=== PATIENT | female | born 1940 | race Caucasian/White ===

== ENCOUNTER 2017-03-11 14:26 | Emergency (ER) | payer OTHER, MEDICARE ==
[~2017-03-11] VITALS: Ht 154.9 cm; Wt 99.7 kg
[~2017-03-11 14:26] MED LIST: AMLO10TA2 PO; ASCO1CAP3 PO; ASPI325T45 PO; CALCTAB5 PO; CHOL100010 PO; CIPR1TAB11 PO; CLC100 PO; CLOB-65 EXT; GARL400T4 PO; LACTCAP3 PO; LISI40TA PO; LORA-741 PO; MELO15TA10 PO; MULT-610 PO; NAPR1TAB9 PO; NIAC500T11 PO; PRLSR20 PO; SIMV20TA2 PO; TNR50 PO; [UNRECOGNIZED DRUG - CODE] TOP; bactrim
[2017-03-11 14:31] VITALS: TEMP 36.6; Ht 154.9 cm; Wt 99.7 kg
--- NOTE | 2017-03-11 15:10 | EMERGENCY ROOM VISIT NOTE ---
History First contact with patient: 14:49 (Jenna Cuevas M.D.) First contact with patient: 14:49 (Sid Kumar MD) Chief Complaint: SHORTNESS OF BREATH Stated Complaint: SOB URINARY PROBLEMS History of Present Illness The patient is a 77 year old female who presents to the Emergency Room with complaints of SOB, Leg pain, and Leakage of her suprapubic catheter. Patient presented to ED today per PCP direction after recent labwork showed she was in kidney failure and heart failure. SOB has been getting progressively worse over the past 3 days; she states the SOB is worse with exertion and alleviated with rest. patient does not lie flat at night due to back and shoulder pain but still reports orthopnea and PND. She denies any chest pain, or chest pain on exertion She has significant PMH of CHF, CKD, renal and bladder calculi, and colitis. Patient describes swelling in her lower limbs bilaterally and pain in the back of both legs, which is new. She also reports sciatic pain which shoots down both of her legs. She has had a suprapubic catheter since 1992, which chronically leaks, and she has recently had several blood clots obstructing the catheter as well as bladder calculi. She has had leaking around her catheter since bladder calculi removed in she is having leaking around it with a blood clot yesterday. She takes Mobic and Aleve intermittently for her back pain for many years. Usually she walks with a roller walker but gets short of breath. (Jenna Cuevas M.D.) Review of Systems See HPI for pertinent positives and negatives. A total of ten systems were reviewed and were otherwise negative. (Jenna Cuevas M.D.) Past Medical/Surgical History Medical Problems: (1) Bladder calculi (2) Hypertension (3) Suprapubic catheter (Sid Kumar MD) Social History Smoking Status: Never Smoker Drug Use: none Marital Status: Housing Status: lives with family Occupation Status: retired (Jenna Cuevas M.D.) Current/Historical Medications Scheduled Ascorbic Acid (Vitamin C), 500 MG PO BID Aspirin (Aspirin), 325 MG PO QPM Cephalexin Monohydrate (Keflex), 250 MG PO QID Cholecalciferol (Vitamin D3), 1 TAB PO DAILY Docusate Sodium (Docusate Sodium), 100 MG PO BID Lactobacillus (Acidophilus), 2 TAB PO QAM Lisinopril (Zestril), 40 MG PO DAILY Lorazepam (Ativan), 0.5 MG PO QPM Meloxicam (Mobic), 15 MG PO QAM Multiple Vitamins W/ Minerals (Centrum Adults), 1 TAB PO QPM Naproxen (Aleve), 220 MG PO QPM Nebivolol Hcl (Bystolic), 1 TAB PO DAILY Niacin (Niacin), 500 MG PO QPM Omeprazole (Prilosec), 20 MG PO QAM Simvastatin (Zocor), 20 MG PO QPM Scheduled PRN Emollient (Amlactin Cerapeutic), 1 APPLN TOP BID PRN for dry skin Fiber Laxative (Fiber Laxative), for PRN Miscellaneous Medications Calcium Carbonate (Caltrate 600) Garlic (Garlic) Saccharomyces Boulardii (Probiotic) Physical Exam Vital Signs Date Time Temp Pulse Resp B/P (MAP) Pulse Ox O2 Delivery O2 Flow Rate FiO2 03/11/17 20:28 84 20 158/70 98 03/11/17 19:18 71 20 100 Nebulizer 162/74 03/11/17 19:17 63 03/11/17 18:36 66 18 213/77 98 Room Air 03/11/17 17:49 62 18 97 Room Air 03/11/17 16:23 74 22 262/77 100 Room Air 03/11/17 15:10 75 03/11/17 14:56 97 Room Air 03/11/17 14:31 36.6 77 24 224/91 97 Room Air (Sid Kumar MD) Physical Exam GENERAL: Awake, alert, well-appearing, in no distress HENT: Normocephalic, atraumatic. Oropharynx unremarkable. EYES: Normal conjunctiva. Sclera non-icteric. NECK: Supple. No nuchal rigidity. FROM. No JVD. RESPIRATORY: Clear to auscultation. CARDIAC: Regular rate, normal rhythm. Extremities warm and well perfused. Pulses equal. ABDOMEN: Soft, non-distended. Tenderness to palpation generalized but enhanced in lower left quadrant. No masses. MUSCULOSKELETAL: Chest examination reveals no tenderness. The back is symmetrical on inspection without obvious abnormality. There is no CVA tenderness to palpation. No joint edema. LOWER EXTREMITIES: Calves are equal size bilaterally and non-tender. No edema. No discoloration. NEURO: Normal sensorium. No sensory or motor deficits noted. SKIN: No rash or jaundice noted. (Jenna Cuevas M.D.) Medical Decision & Procedures ER Provider Diagnostic Interpretation: CHEST ONE VIEW PORTABLE HISTORY: 77 years-old Female acute shortness of breath COMPARISON: Chest radiograph 01/15/2016 TECHNIQUE: Portable upright AP view of the chest. FINDINGS: Cardiac silhouette is mildly enlarged. There is atherosclerosis of the aorta without pneumothorax or pleural effusion. Hazy left basilar opacity is unchanged suggesting subsegmental atelectasis. Right mid lung subsegmental scarring is unchanged. There is mild convex right curvature of the mid thoracic spine. Right shoulder hemiarthroplasty noted. IMPRESSION: Mild cardiomegaly without acute cardiopulmonary process. The above report was generated using voice recognition software. It may contain grammatical, syntax or spelling errors. Electronically signed by: Renan Ellis M.D. 03/11/2017 4:05 PM Dictated Date/Time: 03/11/2017 4:04 PM ABD/PELVIS IV CONTRAST ONLY HISTORY: 77 years-old Female LLQ pain and CVA tenderness b/l acute left lower quadrant abdominal pain. COMPARISON: The abdomen and pelvis 11/19/2015 TECHNIQUE: Multiple axial CT images of the abdomen and pelvis were obtained following the intravenous administration of 94 mL Optiray 320. Oral contrast was not used. A dose lowering technique was used consistent with the principals of ALARA. FINDINGS: The lung bases are generally clear. No pneumoperitoneum identified. Inferior cardiac chambers are mildly enlarged. Mitral and aortic annular calcifications are noted in addition to coronary arterial disease. The liver, spleen and adrenal glands are within normal limits. There is moderate to severe pancreatic atrophy. Multiple gallstones are seen layering within the gallbladder lumen, notably within the gallbladder fundus. No CT evidence of acute cholecystitis. No biliary ductal dilation identified. There is moderate atrophy with multifocal parenchymal scarring within the left kidney. Nonobstructing 2 mm calculus is seen within the inferior pole left kidney. Probable cyst of the inferior pole left kidney is seen, 1.6 cm. Ureters are unremarkable. Indwelling suprapubic catheter is again noted with distal tip terminating in the urinary bladder lumen. There is subtle enhancement of the anterosuperior urinary bladder wall nicely seen on the coronal and sagittal images and also on image 300. Prior hysterectomy. There is mild to moderate plaquing of the abdominal aorta and branch vessels. No bulky retroperitoneal adenopathy. There is no bowel obstruction. Moderate to extensive sigmoid diverticulosis is present without CT evidence of acute diverticulitis at this time. There is no focal bowel wall thickening identified. The appendix is not seen and may be surgically absent. Soft tissues are unremarkable. The bones are moderately demineralized but appear intact. There is mild convex left curvature of the lumbar spine. 10 mm anterolisthesis of L4 on L5 is noted, likely secondary to severe facet arthropathy. There is a large posterior disc osteophyte complex at T12-L1 left paracentral/lateral recess region causing moderate severe narrowing of the left lateral recess with moderate central canal stenosis. IMPRESSION: 1. No acute intra-abdominal or intrapelvic abnormality identified. 2. Colonic diverticulosis without diverticulitis. 3. Cholelithiasis. 4. Punctate nonobstructing calculus of the inferior pole left kidney is noted. There is moderate atrophy of the left kidney. 5. Focal area of ill-defined mildly increased mural enhancement of the anterosuperior urinary bladder is noted which may be incidental. This could be correlated with cystoscopy to exclude neoplasm. Suprapubic catheter noted. 6. Prior hysterectomy. The above report was generated using voice recognition software. It may contain grammatical, syntax or spelling errors Electronically signed by: Renan Ellis M.D. 03/11/2017 6:31 PM Dictated Date/Time: 03/11/2017 6:21 PM (Sid Kumar MD) Laboratory Results 03/11/17 16:48 Red Blood Count 4.32, Mean Corpuscular Volume 94.4, Mean Corpuscular Hemoglobin 31.3, Mean Corpuscular Hemoglobin Concent 33.1, Mean Platelet Volume 11.1, Neutrophils (%) (Auto) 72.5, Lymphocytes (%) (Auto) 18.2, Monocytes (%) (Auto) 8.6, Eosinophils (%) (Auto) 0.1, Basophils (%) (Auto) 0.2, Neutrophils # (Auto) 8.59, Lymphocytes # (Auto) 2.15, Monocytes # (Auto) 1.02, Eosinophils # (Auto) 0.01, Basophils # (Auto) 0.02 03/11/17 16:48 Test 03/11/17 16:30 03/11/17 16:48 Urine Color YELLOW Urine Appearance CLEAR (CLEAR) Urine pH 6.0 (4.5-7.5) Urine Specific [place] 1.012 (1.000-1.030) Urine Protein NEG (NEG) Urine Glucose (UA) NEG (NEG) Urine Ketones NEG (NEG) Urine Occult Blood NEG (NEG) Urine Nitrite NEG (NEG) Urine Bilirubin NEG (NEG) Urine Urobilinogen NEG (NEG) Urine Leukocyte Esterase TRACE (NEG) Urine WBC (Auto) 1-5 /hpf (0-5) Urine RBC (Auto) 0-4 /hpf (0-4) Urine Hyaline Casts (Auto) 0 /lpf (0-5) Urine Epithelial Cells (Auto) 10-20 /lpf (0-5) Urine Bacteria (Auto) NEG (NEG) White Blood Count 11.84 K/uL (4.8-10.8) Red Blood Count 4.32 M/uL (4.2-5.4) Hemoglobin 13.5 g/dL (12.0-16.0) Hematocrit 40.8 % (37-47) Mean Corpuscular Volume 94.4 fL (80-100) Mean Corpuscular Hemoglobin 31.3 pg (25-34) Mean Corpuscular Hemoglobin Concent 33.1 g/dl (32-36) Platelet Count 212 K/uL (130-400) Mean Platelet Volume 11.1 fL (7.4-10.4) Neutrophils (%) (Auto) 72.5 % Lymphocytes (%) (Auto) 18.2 % Monocytes (%) (Auto) 8.6 % Eosinophils (%) (Auto) 0.1 % Basophils (%) (Auto) 0.2 % Neutrophils # (Auto) 8.59 K/uL (1.4-6.5) Lymphocytes # (Auto) 2.15 K/uL (1.2-3.4) Monocytes # (Auto) 1.02 K/uL (0.11-0.59) Eosinophils # (Auto) 0.01 K/uL (0-0.5) Basophils # (Auto) 0.02 K/uL (0-0.2) RDW Standard Deviation 51.3 fL (36.4-46.3) RDW Coefficient of Variation 15.1 % (11.5-14.5) Immature Granulocyte % (Auto) 0.4 % Immature Granulocyte # (Auto) 0.05 K/uL (0.00-0.02) Prothrombin Time 10.4 SECONDS (9.0-12.0) Prothromb Time International Ratio 1.0 (0.9-1.1) Activated Partial Thromboplast Time 24.3 SECONDS (21.0-31.0) Partial Thromboplastin Ratio 0.9 Anion Gap 6.0 mmol/L (3-11) Est Creatinine Clear Calc Drug Dose 42.5 ml/min Estimated GFR () 50.5 Estimated GFR (Non- 43.6 BUN/Creatinine Ratio 23.6 (10-20) Calcium Level 9.6 mg/dl (8.5-10.1) Magnesium Level 2.1 mg/dl (1.8-2.4) Total Bilirubin 0.4 mg/dl (0.2-1) Aspartate Amino Transf (AST/SGOT) 16 U/L (15-37) Alanine Aminotransferase (ALT/SGPT) 21 U/L (12-78) Alkaline Phosphatase 89 U/L (45-117) Pro-B-Type Natriuretic Peptide 1262 pg/ml (0-1800) Total Protein 7.4 gm/dl (6.4-8.2) Albumin 3.4 gm/dl (3.4-5.0) Globulin 4.0 gm/dl (2.5-4.0) Albumin/Globulin Ratio 0.9 (0.9-2) (Sid Kumar MD) Medications Administered Medications (Trade) Dose Ordered Sig/Jn Route Start Time Stop Time Status Last Admin Dose Admin Sodium Chloride 250 ml @ 999 mls/hr Q16M STAT IV 03/11/17 16:41 03/11/17 16:56 DC 03/11/17 16:56 999 MLS/HR Sodium Chloride 500 ml @ 999 mls/hr Q31M STAT IV 03/11/17 18:42 03/11/17 19:12 DC 03/11/17 19:09 999 MLS/HR Albuterol/ Ipratropium (Duoneb) 3 ml ONE STAT INH 8/31/17 18:54 03/11/17 18:55 DC 03/11/17 19:09 3 ML (Sid Kumar MD) ECG Indication: SOB/dyspnea Rate (beats per minute): 68 Rhythm: normal sinus Findings: no acute ischemic change Comparison ECG Date: Change: no significant change (January 15, 2016) (Jenna Cuevas M.D.) Indication: chest pain Rate (beats per minute): 68 Rhythm: normal sinus Findings: no acute ischemic change (Sid Kumar MD) ED Course 1449: full h&p taken by myself and dr. kumar 1509: Dr. kumar discussed case with dr. roberts, who performed his own h&p 1834; patient reassessed by dr. kumar; no change in symptoms; feels she is at her baseline. 1914: patient reassessed; BP 162/74 by manual measure; patient provided with labs, ct results, happy for discharge home. 2003: patient discharged home (Jenna Cuevas M.D.) Medical Decision Prior records/ancillary studies reviewed. Triage Nursing notes reviewed. Additional history obtained from the family. The patient's history was concerning for SOB. Differential diagnosis: Etiologies such as infections, reactive airway disease, pneumonia, pneumothorax , COPD, CHF, cardiac ischemia, pulmonary embolism, musculoskeletal, gastrointestinal, as well as others were entertained. Physical examination: As above. Blood pressure noted to be markedly elevated with automatic cuff; manual BP measurements: systolic 150-160/diastolic 70-80 ER treatment provided: Duoneb given 750 mL bolus IV NSS Diagnostic interpretation by me: The electrocardiogram was negative for acute ischemic or pathologic change. The labs revealed Cr: 1.2, down from 1.78 yesterday; mildly elevated white cell count, consistent with decadron use yesterday. Imaging studies: Chest x-ray as above. CT scan performed due to LLQ and flank pain. However, scan showed no acute pathology. Ill defined focus in the bladder, recommend further evaluation by urology as outpatient. The patient was short of breath but not clinically far off of her baseline; chest xray negative, bnp and bedside ultrasound of heart were not consistent with CHF exacerbation. She appeared to have some improvement with the duo neb. She was recommended followup with her PCP in the next 1-2 days; for possible further evaluation of symptoms of asthma/COPD; or consider referral to pulmonary medicine. By the evaluation outlined above emergent etiologies such as CHF, cardiac ischemia, pulmonary embolism, reactive airway disease, pneumonia, pneumothorax, musculoskeletal, serious bacterial infections, as well as others were deemed relatively unlikely. Creatinine improved from yesterday, no current concern for acute kidney injury; She was recommended to continue antibiotics as prescribed by PCP. She was particularly concerned about leakage of ehr suprapubic acatheter, however this has been going on for over a year. Recommend considering referral to urology for further evaluation. Referral: The patient was referred back to their primary care physician for follow-up in 2 to 3 days for a recheck of the current condition. (Jenna Cuevas M.D.) Medication Reconcilliation Current Medication List: was personally reviewed by me (Jenna Cuevas M.D.) Current Medication List: was personally reviewed by me (Sid Kumar MD) Blood Pressure Screening Patient's blood pressure: Elevated blood pressure Blood pressure disposition: Referred to PCP (Jenna Cuevas M.D.) Impression Primary Impression: Shortness of breath Additional Impression: Chronic suprapubic catheter Departure Information Dispostion Home / Self-Care Condition FAIR Referrals No Doctor, Assigned (PCP) Fito Matthews PA-C Patient Instructions My [facility] Resident Tracking Resident Involvement: Resident Care Provided Care Provided: Adult ED (Jenna Cuevas M.D.) Resident Involvement: Resident Care Provided Care Provided: Adult ED (Sid Kumar MD) Problem Qualifiers
[2017-03-11] MEDS ORDERED: SACC250C11 (15:23)
[2017-03-11] MEDS ORDERED: GARL1CAP6 (15:23)
[2017-03-11] MEDS ORDERED: KFL/250 PO (15:23)
[2017-03-11] MEDS ORDERED: CALCTAB5 (15:23)
[2017-03-11] MEDS ORDERED: CHOL1000 PO (15:23)
[2017-03-11] MEDS ORDERED: NEBI10TA2 PO (15:25)
[2017-03-11] MEDS ORDERED: FIBER (15:26)
--- NOTE | 2017-03-11 16:07 | DIAGNOSTIC IMAGING REPORT ---
CHEST ONE VIEW PORTABLE HISTORY: 77 years-old Female acute shortness of breath COMPARISON: Chest radiograph 01/15/2016 TECHNIQUE: Portable upright AP view of the chest. FINDINGS: Cardiac silhouette is mildly enlarged. There is atherosclerosis of the aorta without pneumothorax or pleural effusion. Hazy left basilar opacity is unchanged suggesting subsegmental atelectasis. Right mid lung subsegmental scarring is unchanged. There is mild convex right curvature of the mid thoracic spine. Right shoulder hemiarthroplasty noted. IMPRESSION: Mild cardiomegaly without acute cardiopulmonary process. The above report was generated using voice recognition software. It may contain grammatical, syntax or spelling errors. Electronically signed by: Renan Ellis M.D. 03/11/2017 4:05 PM Dictated Date/Time: 03/11/2017 4:04 PM
[2017-03-11] MEDS ORDERED: SODIUM CHLORIDE 0.9% 250ML 250 ML IV STA (16:41)
[2017-03-11 16:42] LABS: MANUAL MICROSCOPIC REQUIRED? NO; REVIEW REQ? NO; URINE APPEARANCE CLEAR (CLEAR); URINE BILIRUBIN NEG (NEG); URINE COLOR YELLOW; URINE NITRITE NEG (NEG); URINE SPECIFIC GRAVITY 1.012 (1.000-1.030); UROBILINOGEN NEG (NEG); ZZURINE CULT IF INDIC CATH NO
[2017-03-11 17:01] LABS: BASO % 0.2 %; BASO ABS # 0.02 K/uL (0-0.2); COMPLETE YES; EOS % 0.1 %; HEMATOCRIT 40.8 % (37-47); IG% 0.4 %; LYMPH % 18.2 %; LYMPH ABS # 2.15 K/uL (1.2-3.4); MEAN CELL VOLUME 94.4 fL (80-100); MEAN CORPUSCULAR HEMOGLOBIN 31.3 pg (25-34); MEAN CORPUSCULAR HGB CONC 33.1 g/dl (32-36); MEAN PLATELET VOLUME 11.1 fL (7.4-10.4); MONO % 8.6 %; NEUT % 72.5 %; PLATELET COUNT 212 K/uL (130-400); RED BLOOD COUNT 4.32 M/uL (4.2-5.4); WHITE BLOOD COUNT 11.84 K/uL (4.8-10.8)
[2017-03-11 17:09] LABS: PARTIAL THROMBOPLASTIN RATIO 0.9; PROTHROMBIN TIME (PATIENT) 10.4 SECONDS (9.0-12.0)
[2017-03-11 17:27] LABS: BUN/CREATININE RATIO 23.6 (10-20); CALCIUM 9.6 mg/dl (8.5-10.1); CREATININE 1.2 mg/dl (0.60-1.20); MAGNESIUM 2.1 mg/dl (1.8-2.4); POTASSIUM 3.9 mmol/L (3.5-5.1)
[2017-03-11 17:31] LABS: ALB/GLOB RATIO 0.9 (0.9-2)
[2017-03-11] MEDS ORDERED: OPTIRAY 320 IV PRN (18:00)
--- NOTE | 2017-03-11 18:32 | DIAGNOSTIC IMAGING REPORT ---
ABD/PELVIS IV CONTRAST ONLY HISTORY: 77 years-old Female LLQ pain and CVA tenderness b/l acute left lower quadrant abdominal pain. COMPARISON: The abdomen and pelvis 11/19/2015 TECHNIQUE: Multiple axial CT images of the abdomen and pelvis were obtained following the intravenous administration of 94 mL Optiray 320. Oral contrast was not used. A dose lowering technique was used consistent with the principals of SONYA. FINDINGS: The lung bases are generally clear. No pneumoperitoneum identified. Inferior cardiac chambers are mildly enlarged. Mitral and aortic annular calcifications are noted in addition to coronary arterial disease. The liver, spleen and adrenal glands are within normal limits. There is moderate to severe pancreatic atrophy. Multiple gallstones are seen layering within the gallbladder lumen, notably within the gallbladder fundus. No CT evidence of acute cholecystitis. No biliary ductal dilation identified. There is moderate atrophy with multifocal parenchymal scarring within the left kidney. Nonobstructing 2 mm calculus is seen within the inferior pole left kidney. Probable cyst of the inferior pole left kidney is seen, 1.6 cm. Ureters are unremarkable. Indwelling suprapubic catheter is again noted with distal tip terminating in the urinary bladder lumen. There is subtle enhancement of the anterosuperior urinary bladder wall nicely seen on the coronal and sagittal images and also on image 300. Prior hysterectomy. There is mild to moderate plaquing of the abdominal aorta and branch vessels. No bulky retroperitoneal adenopathy. There is no bowel obstruction. Moderate to extensive sigmoid diverticulosis is present without CT evidence of acute diverticulitis at this time. There is no focal bowel wall thickening identified. The appendix is not seen and may be surgically absent. Soft tissues are unremarkable. The bones are moderately demineralized but appear intact. There is mild convex left curvature of the lumbar spine. 10 mm anterolisthesis of L4 on L5 is noted, likely secondary to severe facet arthropathy. There is a large posterior disc osteophyte complex at T12-L1 left paracentral/lateral recess region causing moderate severe narrowing of the left lateral recess with moderate central canal stenosis. IMPRESSION: 1. No acute intra-abdominal or intrapelvic abnormality identified. 2. Colonic diverticulosis without diverticulitis. 3. Cholelithiasis. 4. Punctate nonobstructing calculus of the inferior pole left kidney is noted. There is moderate atrophy of the left kidney. 5. Focal area of ill-defined mildly increased mural enhancement of the anterosuperior urinary bladder is noted which may be incidental. This could be correlated with cystoscopy to exclude neoplasm. Suprapubic catheter noted. 6. Prior hysterectomy. The above report was generated using voice recognition software. It may contain grammatical, syntax or spelling errors. Electronically signed by: Renan Ellis M.D. 03/11/2017 6:31 PM Dictated Date/Time: 03/11/2017 6:21 PM
[2017-03-11] MEDS ORDERED: SODIUM CHLORIDE 0.9% 500ML 500 ML IV STA (18:42)
[2017-03-11] MEDS ORDERED: ALBUT/IPRATROP 3MG/0.5MG NEB 3 ML VIAL INH STA (18:54)
--- NOTE | 2017-03-11 19:44 | EMERGENCY ROOM VISIT NOTE ---
ED Visit Note First contact with patient: 14:49 HPI: Ongoing SOB with concern for new DEJA and new CHF on outpatient labs, in the setting of chronic indwelling suprapubic catheter with chronic extra- catheter drainage and frequent obstruction. PE: AFVSS, NAD NC/AT, MM dry RRR, no murmurs CTAB Abd with mild left flank ttp othrwise soft NT/ND. Suprapubic catheter site without erythema or warmth. Scant urine draining around catheter but also through catheter. Ext: no edema, erythema Neuro: grossly intact Plan: Mild leukocytosis in setting of recent steroids. Cr improved from outpatient labs. 1.2 today compared to 1.8. Likely improvement after suprapubic catheter was changed. BNP unremarkable. CXR with cardiomegaly but clear lungs. Limited EM MD Bedside echo shows no pericardial effusion with mild LV hypertrophy with normal function and grossly normal RV size and function. CT abd /pelvis unremarkable. Of note, patient further reports her sob, while slightly worse over past few days, is now at her recent baseline over past several months. Mild improvement with duoneb. Currently on keflex for dx of UTI. UA negative today but on abx. Considering w/u unremarkable and patient relatively well-appearing, will d/c with outpatient f/u with urology and her pcp with possible referral to pulmonology. I reviewed the patient's past medical history, medications, and visit nursing notes. I discussed the case with the resident, examined the patient, and agree with the findings and plan as documented in the residents note.
[2017-03-11 20:28] VITALS: BP 158/70; PULSE 84; O2SAT 98
== END 2017-03-11 20:29 | disposition home or self-care (01) ==
LOC: C.EDB 14:28 → C.EDC 20:29
DX: R06.02 Shortness of breath (principal); T83.031A Leakage of indwelling urethral catheter, initial encounter; M79.604 Pain in right leg; M79.605 Pain in left leg; I10 Essential (primary) hypertension; M79.89 Other specified soft tissue disorders; Z79.82 Long term (current) use of aspirin; Z79.899 Other long term (current) drug therapy; Z87.442 Personal history of urinary calculi; Y84.6 Urinary catheterization as the cause of abnormal reaction of the patient, or of later complication, without mention of misadventure at the time of the procedure

== ENCOUNTER → 2018-02-01 | Outpatient (CLI) | payer OTHER, MEDICARE ==
[~2018-02-01] MED LIST changes: -AMLO10TA2 PO; +ASPECOTC PO; -ASPI325T45 PO; +CALCTAB5; -CALCTAB5 PO; +CHOL1000 PO; -CHOL100010 PO; -CIPR1TAB11 PO; -CLOB-65 EXT; +FIBER; +GARL1CAP6; -GARL400T4 PO; +KFL/250 PO; +NEBI10TA2 PO; +SACC250C11; -TNR50 PO; -bactrim
--- NOTE | 2018-02-01 15:59 | DIAGNOSTIC IMAGING REPORT ---
CT OF THE PELVIS WITHOUT CONTRAST CLINICAL HISTORY: Bladder stones. COMPARISON STUDY: CT of the abdomen and pelvis March 11, 2017. TECHNIQUE: Axial images of the pelvis were obtained without IV contrast. Sagittal and coronal reconstructions were viewed. FINDINGS: A suprapubic catheter is located within the superior aspect of the bladder. Bladder is decompressed and therefore suboptimally assessed. No bladder calculus is present. There is no pelvic lymphadenopathy or pelvic fluid collection. Extensive diverticulosis is noted within visualized portions of the colon without evidence for acute diverticulitis. There is no acute pelvic fracture. No pelvic lymphadenopathy is present. There is no ascites within the pelvis. IMPRESSION: 1. No bladder calculus. 2. Suprapubic catheter within the superior aspect of the bladder which is decompressed. 3. Extensive colonic diverticulosis without evidence for acute diverticulitis within visualized portions of the colon. 4. No pelvic fluid collection or lymphadenopathy. Electronically signed by: Jose Melgoza M.D. 02/01/2018 3:58 PM Dictated Date/Time: 02/01/2018 3:51 PM
== END | disposition home or self-care (01) ==
LOC: C.CTS 15:27
PROVIDERS: ATTEND Urology
DX: N21.0 Calculus in bladder (principal); Z93.50 Unspecified cystostomy status; K57.90 Diverticulosis of intestine, part unspecified, without perforation or abscess without bleeding